=== PATIENT | male | born 1945 | race Two or more races ===

== ENCOUNTER 2017-12-27 06:46 | Outpatient (CLI) | payer OTHER | END 2017-12-27 07:00 | disposition home or self-care (01) | LOC: LAB 06:46 | DX: D64.89 Other specified anemias (principal); E11.9 Type 2 diabetes mellitus without complications; E78.2 Mixed hyperlipidemia; I10 Essential (primary) hypertension; E03.8 Other specified hypothyroidism ==

== ENCOUNTER 2018-04-11 06:46 | Outpatient (CLI) | payer OTHER | END 2018-04-11 06:50 | disposition home or self-care (01) | LOC: LAB 06:46 | DX: C73 Malignant neoplasm of thyroid gland (principal); E89.0 Postprocedural hypothyroidism ==

== ENCOUNTER → 2018-07-19 06:57 | Outpatient (CLI) | payer OTHER | END | disposition home or self-care (01) | LOC: LAB 06:57 | DX: D64.89 Other specified anemias (principal); E11.9 Type 2 diabetes mellitus without complications; E78.2 Mixed hyperlipidemia; I10 Essential (primary) hypertension; E03.8 Other specified hypothyroidism ==

== ENCOUNTER → 2019-01-02 | Outpatient (CLI) | payer OTHER | END | disposition home or self-care (01) | LOC: LAB 06:23 | DX: D64.89 Other specified anemias (principal); E11.9 Type 2 diabetes mellitus without complications; E78.2 Mixed hyperlipidemia; I10 Essential (primary) hypertension; E03.8 Other specified hypothyroidism; R97.20 Elevated prostate specific antigen [PSA]; R29.898 Other symptoms and signs involving the musculoskeletal system ==

== ENCOUNTER 2019-04-10 06:46 | Outpatient (CLI) | payer OTHER | END 2019-04-10 06:50 | disposition home or self-care (01) | LOC: LAB 06:46 | DX: C73 Malignant neoplasm of thyroid gland (principal); E89.0 Postprocedural hypothyroidism ==

== ENCOUNTER → 2019-11-06 06:38 | Outpatient (CLI) | payer OTHER | END | disposition home or self-care (01) | LOC: LAB 06:38 | DX: R97.20 Elevated prostate specific antigen [PSA] (principal); C73 Malignant neoplasm of thyroid gland; E89.0 Postprocedural hypothyroidism; N40.1 Benign prostatic hyperplasia with lower urinary tract symptoms; D64.89 Other specified anemias; E11.9 Type 2 diabetes mellitus without complications; E78.2 Mixed hyperlipidemia; I10 Essential (primary) hypertension ==

== ENCOUNTER → 2020-03-25 06:32 | Outpatient (CLI) | payer OTHER | END | disposition home or self-care (01) | LOC: LAB 06:32 | PROVIDERS: ATTEND Internal Medicine Sports Medicine | DX: C73 Malignant neoplasm of thyroid gland (principal); E89.0 Postprocedural hypothyroidism ==

== ENCOUNTER → 2020-07-11 07:20 | Outpatient (CLI) | payer OTHER | END | disposition home or self-care (01) | LOC: LAB 07:20 | PROVIDERS: ATTEND Internal Medicine Sports Medicine | DX: D64.89 Other specified anemias (principal); E11.9 Type 2 diabetes mellitus without complications; E78.2 Mixed hyperlipidemia; I10 Essential (primary) hypertension; E03.8 Other specified hypothyroidism ==

== ENCOUNTER 2020-07-11 09:49 | Outpatient (CLI) | payer OTHER | END 2020-07-11 10:00 | disposition home or self-care (01) | LOC: NUCLEAR 09:49 | PROVIDERS: ATTEND Internal Medicine Sports Medicine | DX: M81.0 Age-related osteoporosis without current pathological fracture (principal) ==

== ENCOUNTER → 2021-01-02 06:24 | Outpatient (CLI) | payer OTHER | END | disposition home or self-care (01) | LOC: LAB 06:24 | PROVIDERS: ATTEND Internal Medicine Sports Medicine | DX: D64.9 Anemia, unspecified (principal); E11.9 Type 2 diabetes mellitus without complications; E78.2 Mixed hyperlipidemia; I10 Essential (primary) hypertension; E03.8 Other specified hypothyroidism ==

== ENCOUNTER → 2021-07-09 06:38 | Outpatient (CLI) | payer OTHER | END | disposition home or self-care (01) | LOC: LAB 06:38 | PROVIDERS: ATTEND Internal Medicine Sports Medicine | DX: D64.89 Other specified anemias (principal); E11.9 Type 2 diabetes mellitus without complications; E78.2 Mixed hyperlipidemia; I10 Essential (primary) hypertension; E03.8 Other specified hypothyroidism ==

== ENCOUNTER 2024-03-22 12:57 | Outpatient (CLI) | payer OTHER | END 2024-03-22 12:59 | disposition home or self-care (01) | LOC: NUCLEAR 12:57 | PROVIDERS: ATTEND Internal Medicine Sports Medicine | DX: M81.0 Age-related osteoporosis without current pathological fracture (principal) ==